=== PATIENT | female | born 1935 | race Caucasian/White ===

== ENCOUNTER 2016-11-05 11:05 | Emergency (ER) | payer MEDICARE ==
[2016-11-05 11:16] VITALS: BP 128/72
[2016-11-05] MEDS ORDERED: Amoxicillin/Clavulanate TAB* 875 MG PO ONE (12:05)
--- NOTE | 2016-11-05 12:05 | ED ---
Laceration/Wound HPI - HPI Summary HPI Summary: 81F presents with dog bite to left pinky finger. She was babysitting her sons dog and it bite her over her DIP. She does not know when her last tetanus was. She has full ROM of the finger. She did clean the area out. she denies any numbness or tingling. The dogs rabies is up to date. - History of Current Complaint Stated Complaint: DOG BITE Time Seen by Provider: 11/05/16 11:21 Pain Intensity: 2 - Allergy/Home Medications Allergies/Adverse Reactions: Allergies Allergy/AdvReac Type Severity Reaction Status Date / Time Oxycodone AdvReac Vomiting Verified 11/10/12 14:42 PMH/Surg Hx/FS Hx/Imm Hx Endocrine/Hematology History: Reports: Hx Thyroid Disease - Nodule Denies: Hx Diabetes Cardiovascular History: Denies: Hx Hypertension Respiratory History: Reports: Hx Chronic Obstructive Pulmonary Disease (COPD) Denies: Hx Asthma Comment Only: Other Respiratory Problems/Disorders - PNEUMONIA PAST 2 MICHELE GI History: Denies: Hx Ulcer - Cancer History Cancer Type, 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 - Surgical History Surgery Procedure, Year, and Place: spinal cord meningioma 1982 and 1988 Infectious Disease History: Denies: Hx Hepatitis, Hx Human Immunodeficiency Virus (HIV), Traveled Outside the [place] in Last 30 Days - Family History Known Family History: Positive: Cardiac Disease - Social History Alcohol Use: Occasionally Substance Use Type: Reports: None Smoking Status (MU): Never Smoked Tobacco Review of Systems Negative: Fever Negative: Chest Pain Negative: Shortness Of Breath Positive: Other - dog bite All Other Systems Reviewed And Are Negative: Yes Physical Exam Triage Information Reviewed: Yes Vital Signs On Initial Exam: Initial Vitals Temp Pulse Resp BP Pulse Ox 96.3 F 66 18 128/72 100 11/05/16 11:08 11/05/16 11:08 11/05/16 11:08 11/05/16 11:08 11/05/16 11:08 Vital Signs Reviewed: Yes Appearance: Positive: Well-Appearing Skin: Positive: Other - 2cm laceration across DIP of left little finger Head/Face: Positive: Normal Head/Face Inspection Eyes: Positive: Normal, Conjunctiva Clear Respiratory/Lung Sounds: Positive: Clear to Auscultation, Breath Sounds Present Cardiovascular: Positive: Normal, RRR Musculoskeletal: Positive: Strength/ROM Intact - left pinky, Other - capillary refill<2 secs, good pulses Procedures - Laceration/Wound Repair 1 Location: Other - left pinky Description: Linear Anesthesia: Digital, 1.0% Length, Depth and Shape: 2cm superficial Betadine Prep?: Yes Irrigated w/ Saline (ccs): 500 Laceration/Wound Explored: no foreign body removed Closure: Single Layer Suture Type: Prolene - 4-0 Number of Sutures: 3 Diagnostics - Vital Signs Vital Signs Temp Pulse Resp BP Pulse Ox 11/05/16 11:08 96.3 F 66 18 128/72 100 - Laboratory Lab Statement: Any lab studies that have been ordered have been reviewed, and results considered in the medical decision making process. Laceration Repair Course/Dx - Course Course Of Treatment: 81F presents with dog bite to left pinky finger. She was babysitting her sons dog and it bite her over her DIP. She does not know when her last tetanus was so gave one. She has full ROM of the finger. The dogs rabies is up to date. cleaned area well and placed 3 sutures. placed in metal finger splint and gave augmentin. warned of any signs of infection to return. patient understands and agrees with plan - Differential Dx Differental Diagnoses: Abrasion, Bite Injury, Laceration - Clinical Impression Provider Diagnoses: Laceration of left little finger, Dog bite Discharge - Discharge Plan Condition: Good Disposition: HOME Prescriptions: Amoxicillin/Clavulanate TAB* [Augmentin TAB 875*] 875 mg PO BID #13 tab Patient Education Materials: Care For Your Stitches (ED) Referrals: No Primary Care Phys,NOPCP [Primary Care Provider] - Additional Instructions: Take antibiotic twice a day for 7 days, first dose given in ED Keep area in splint for 5 days afterwards can take off as long as wound looks healed enough that will not break open with movement Keep area clean and dry for 48 hours Take Tylenol or ibuprofen for pain every 6 hours Return to ED or primary for suture removal in 10-14 days Return to ED if develop signs of infection such as fever, spreading redness, or pus formation
[2016-11-05] MEDS ORDERED: Tetan/Diph/Pertus SYR(Tdap)* 0.5 ML SYR(BOOSTRIX) use SYR IM ONE (12:06)
== END 2016-11-05 12:35 | disposition home or self-care (01) ==
LOC: ED 11:05
DX: S61.257A Open bite of left little finger without damage to nail, initial encounter (principal); W54.0XXA Bitten by dog, initial encounter; Y93.9 Activity, unspecified; Y92.9 Unspecified place or not applicable
CPT/HCPCS: 90471; 90715; 99282; A9270-GY

== ENCOUNTER → 2016-12-13 09:05 | Emergency (ER) | payer MEDICARE ==
--- NOTE | 2016-12-13 12:08 | ED ---
Skin Complaint - HPI Summary HPI Summary: 81 female presents with with complaints of sustaining a skin tear after trying to fold up her folding chair. Patient states this occurred on Sunday 12/10. She and her have been applying triple antibiotic ointment to the area and dressing it. They wanted to be evaluated today for concern the skin flap had to be removed. Patient states the flap of skin is still attached however has become black and blue. Denies any signs of infection. No other complaints. It is tender to touch. Able to bear weight. Bleeding controlled. Not on anticoagulants. No other injuries. - History of Current Complaint Chief Complaint: EDExtremityLower Time Seen by Provider: 12/13/16 10:50 Stated Complaint: CK WOUND ON LEG Hx Obtained From: Patient Onset/Duration: Started Days Ago, Traumatic, Still Present Skin Exposure Onset/Duration: Days Ago Timing: Constant Onset Severity: Moderate Current Severity: Mild Pain Intensity: 2 Pain Scale Used: 0-10 Numeric Skin Location: Leg - right lower leg Character: Redness, Painful Aggravating Symptom(s): Nothing Alleviating Symptom(s): Nothing Associated Signs & Symptoms: Negative Related History: Trauma - Allergy/Home Medications Allergies/Adverse Reactions: Allergies Allergy/AdvReac Type Severity Reaction Status Date / Time No Known Allergies Allergy Verified 12/13/16 09:12 PMH/Surg Hx/FS Hx/Imm Hx Endocrine/Hematology History: Reports: Hx Thyroid Disease - Nodule Denies: Hx Diabetes Cardiovascular History: Denies: Hx Hypertension Respiratory History: Reports: Hx Chronic Obstructive Pulmonary Disease (COPD) Denies: Hx Asthma Comment Only: Other Respiratory Problems/Disorders - PNEUMONIA PAST 2 MICHELE GI History: Denies: Hx Ulcer - Cancer History Cancer Type, 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 - Surgical History Surgery Procedure, Year, and Place: spinal cord meningioma 1982 and 1988 - Immunization History Immunizations Up to Date: Yes Infectious Disease History: Denies: Hx Hepatitis, Hx Human Immunodeficiency Virus (HIV), Traveled Outside the [place] in Last 30 Days - Family History Known Family History: Positive: Cardiac Disease - Social History Alcohol Use: Occasionally Substance Use Type: Reports: None Smoking Status (MU): Never Smoked Tobacco Review of Systems Constitutional: Negative Cardiovascular: Negative Respiratory: Negative Musculoskeletal: Negative Positive: Other - skin avulsion All Other Systems Reviewed And Are Negative: Yes Physical Exam Triage Information Reviewed: Yes Vital Signs On Initial Exam: Initial Vitals Temp Pulse Resp BP Pulse Ox 97.6 F 66 16 149/59 99 12/13/16 09:12 12/13/16 09:12 12/13/16 09:12 12/13/16 09:12 12/13/16 09:12 Vital Signs Reviewed: Yes Appearance: Positive: Well-Appearing, No Pain Distress, Well-Nourished Skin: Positive: Warm, Skin Color Reflects Adequate Perfusion, Dry, Other - skin avulsion noted on anterior right lower leg, approxiamtely 4.5 cm in length, trainglular shape. no bleeding, no fb and no signs of infection. skin flap is bruised. no surround cellulitis. appears to be healing nicely.. Negative: Cold , Tender, Cyanosis @, Pale, Erythema @ Head/Face: Positive: Normal Head/Face Inspection Eyes: Positive: Normal, Conjunctiva Clear ENT: Positive: Hearing grossly normal Neck: Positive: Supple, Nontender Respiratory/Lung Sounds: Positive: Clear to Auscultation, Breath Sounds Present. Negative: Rales, Rhonchi, Wheezes Cardiovascular: Positive: Normal, RRR, Pulses are Symmetrical in both Upper and Lower Extremities. Negative: Murmur, Rub Musculoskeletal: Positive: Normal, Strength/ROM Intact, Pain @ - on palpation of wound, skin avulsion. Negative: Limited @, Interruption @ Neurological: Positive: Normal, Sensory/Motor Intact - sensation intact, Alert, Oriented to Person Place, Time, CN Intact II-III, Reflexes Intact, NV Bundle Intact Distally, Normal Gait Psychiatric: Positive: Affect/Mood Appropriate Diagnostics - Vital Signs Vital Signs Temp Pulse Resp BP Pulse Ox 12/13/16 09:12 97.6 F 66 16 149/59 99 - Laboratory Lab Statement: Any lab studies that have been ordered have been reviewed, and results considered in the medical decision making process. Course/Dx - Course Course Of Treatment: patient was reassured to allow skin avulsion to heal. was dressed and xeroform applied to wound without complication. Was irrigated and cleaned before. Aware of worsening signs and symptoms. No other concerns at this time. Follow up. Continue dressing and applying triple antibiotic. - Diagnoses Provider Diagnoses: Avulsion of skin of right lower leg Discharge - Discharge Plan Condition: Stable Disposition: HOME Patient Education Materials: Skin Avulsion (ED) Referrals: No Primary Care Phys,NOPCP [Primary Care Provider] - [facility] [Outside] Additional Instructions: Keep dressing on for 24-48 hours. Do not get wet. Redress after rinsing area with warm water and soap, gently. Continue apply triple antibiotic ointment and dressing as desired. Watch for worsening signs such as infection. Follow up with PCP. Allow time for wound to heal.
[2016-12-13 12:34] VITALS: BP 151/63
== END | disposition home or self-care (01) ==
LOC: ED 09:05
DX: S81.801A Unspecified open wound, right lower leg, initial encounter (principal); W22.8XXA Striking against or struck by other objects, initial encounter; Y93.9 Activity, unspecified; Y92.9 Unspecified place or not applicable
CPT/HCPCS: 99282